=== PATIENT | female | born 1985 | race Caucasian/White ===

== ENCOUNTER → 2021-08-27 | Outpatient (CLI) | payer BC ==
[~2021-08-27] MED LIST: BCPs; IBUP800 PO; OMEP40CA12 PO; PHENA200 PO; POLY500 PO; Robaxin-750750 MG PO; SUCR1 PO; SULTRIDS PO; [UNRECOGNIZED DRUG - REMARK]
[2021-08-27 07:57] LABS: BASOPHILS ABSOLUTE AUTO 0.04 K/mm3 (0.00-0.23); BASOPHILS PERCENT AUTO 0 % (0-2); EOSINOPHILS ABSOLUTE AUTO 0.19 K/mm3 (0.00-0.68); EOSINOPHILS PERCENT AUTO 2 % (0-6); Hematocrit 38.7 % (33.0-51.0); Hemoglobin 12.4 g/dL (11.5-16.0); IMMATURE GRAN ABSOLUTE AUTO 0.12 K/mm3 (0.00-0.10); IMMATURE GRAN PERCENT AUTO 1 % (0-1); LYMPHOCYTES ABSOLUTE AUTO 1.71 K/mm3 (0.84-5.20); LYMPHOCYTES PERCENT AUTO 18 % (21-46); MONOCYTES ABSOLUTE AUTO 0.77 K/mm3 (0.16-1.47); MONOCYTES PERCENT AUTO 8 % (4-13); Mean Corpuscular Volume 81 fL (80-100); NEUTROPHILS ABSOLUTE AUTO 6.69 K/mm3 (1.96-9.15); NEUTROPHILS PERCENT AUTO 70 % (41-73); Platelet Count 316 K/mm3 (150-400); RDW Coefficient Variation 12.8 % (11.7-14.2); RDW Standard Deviation 37.3 fL (35.1-46.3); Red Blood Cell Count 4.77 M/mm3 (3.80-5.20); White Blood Cell Count 9.52 K/mm3 (4.00-11.30)
[2021-08-27 08:49] LABS: Alanine Aminotransfer (ALT/SGP 32 U/L (12-78); Albumin, Blood 3.7 g/dL (3.4-5.0); Albumin/Globulin Ratio 1.2 (0.8-1.8); Alk Phos 55 U/L (40-126); Anion Gap 11 mmol/L (6-16); Aspartate Aminotrans (AST/SGOT 18 U/L (12-37); Bilirubin, Total 0.2 mg/dL (0.1-1.0); Blood Urea Nitrogen 11 mg/dL (8-24); Bun/Creatinine Ratio 12.9 (12.0-20.0); CO2, Blood 24 mmol/L (21-32); Calcium, Blood 8.5 mg/dL (8.5-10.1); Chloride, Blood 105 mmol/L (98-108); Creatinine, Blood 0.85 mg/dL (0.40-1.00); Globulin, Blood 3.2 g/dL (2.2-4.0); Glomerular Filtration Rate >60 (60-); Glucose, Blood 93 mg/dL (70-99); Potassium, Blood 4.1 mmol/L (3.5-5.5); Sodium, Blood 140 mmol/L (136-145); Total Protein, Blood 6.9 g/dL (6.4-8.2)
== END ==
LOC: LAB SHORT 07:50
PROVIDERS: Physician Assistant
DX: R07.89 Other chest pain (principal); R53.83 Other fatigue
CPT/HCPCS: 80053; 84443; 84484; 85025; 85379

== ENCOUNTER 2022-06-07 07:34 | Day surgery (SDC) | payer OTHER ==
[~2022-06-07] VITALS: Ht 167.6 cm; Wt 87.3 kg
[2022-06-07] MEDS ORDERED: SERT50 PO (08:03)
[2022-06-07] MEDS ORDERED: OMEP20ER PO (08:03)
--- NOTE | 2022-06-07 09:01 | NUR ---
06/07/22 0901 JOHN ROWAN 0.05MG OF EPI ADDED TO 10MLS OF BUPIVACAINE 0.5% TO CREATE A LOCAL SOLUTION OF BUPIVACAINE 0.5% WITH EPI 1:200,000. LOCAL POURED ONTO STERILE FIELD. 10MLS OF LOCAL INJECTED BY DR. YUEN INTO R HAND AND ELBOW AT END OF CASE.
--- NOTE | 2022-06-07 11:14 | NUR ---
06/07/22 1114 Magnus Kent PT REPORTED 2/10 PAIN UPON DISCHARGE BUT STATED PAIN WAS TOLERABLE. SHE APPEARED CALM AND RELAXED.
== END 2022-06-07 11:07 | disposition home or self-care (01) ==
LOC: ORSCSDS 07:34
PROVIDERS: Orthopaedic Surgery
PROC: 01S40ZZ Reposition Ulnar Nerve, Open Approach (ICD-10-PCS; principal; 2022-06-07 08:45)
PROC: 01N50ZZ Release Median Nerve, Open Approach (ICD-10-PCS; principal; 2022-06-07 08:45)
DX: G56.01 Carpal tunnel syndrome, right upper limb (principal); G56.21 Lesion of ulnar nerve, right upper limb; K21.9 Gastro-esophageal reflux disease without esophagitis; Z79.899 Other long term (current) drug therapy
CPT/HCPCS: J0171; J0690; J1100; J2250; J2405; J2704; J3010; J7120

== ENCOUNTER → 2022-09-25 | Outpatient (CLI) | payer OTHER ==
[~2022-09-25] MED LIST changes: +OMEP20ER PO; +SERT50 PO
[2022-09-27 18:11] LABS: HPV 16 Positive (Negative); HPV 18 Negative (Negative); HPV OTHER HR TYPES Negative (Negative)
== END | disposition home or self-care (01) ==
LOC: LAB SHORT 15:39 → LAB 15:39
PROVIDERS: Advanced Practice Midwife
DX: Z01.419 Encounter for gynecological examination (general) (routine) without abnormal findings (principal)
CPT/HCPCS: 87624; G0145

== ENCOUNTER → 2022-10-21 | Outpatient (CLI) | payer OTHER | END | disposition home or self-care (01) | LOC: LAB SHORT 07:48 → LAB 07:48 → PLD 07:48 | DX: N84.0 Polyp of corpus uteri (principal) | CPT/HCPCS: 88305 ==

== ENCOUNTER 2022-10-31 11:36 | Day surgery (SDC) | payer OTHER ==
[~2022-10-31] VITALS: Ht 167.6 cm; Wt 85.8 kg
--- NOTE | 2022-10-31 08:06 | NUR ---
PT'S GLASSES GIVEN TO , PATIENTS TOP AND BOTTOM DENTURES PLACED IN CUP AND TAKEN TO PACU.
[~2022-10-31 11:36] MED LIST changes: +MULTI-VITAMIN1 EAC2 PO; +PRENATAL PLUS PO
--- NOTE | 2022-10-31 12:15 | NUR ---
Ambulatory in Day Surgery Surgical site prepped with 2% Chlorhexidine cloth wipe. History, Chart, Medications and Allergies reviewed before start of procedure.Lungs clear T/O to Auscultation. Patient confirms NPO status and agrees with scheduled surgery. Patient reports completing Chlorhexadine shower X2 prior to admission to hospital.
--- NOTE | 2022-10-31 17:49 | NUR ---
10/31/[id number] Jacqueline Clay RADIOLOGY CALL AND REPORTED TO NO RETAINED ITEM, EXCEPT VAGINAL PACKING IN PELVIS OR ABDOMEN.
--- NOTE | 2022-10-31 19:28 | NUR ---
SHIFT SUMMARY PT A&OX4, VSS, POLY PO H20 & JELLO AFTER N&V TREATED WITH REGLAN, HUNTER PATENT & DRAINING, PAIN MANAGED WITH DILAUDID 0.5 MG, FAMILY AT BEDSIDE. REPORT PROVIDED TO WOODROW BEARD.
--- NOTE | 2022-11-01 05:23 | NUR ---
SUMMARY PATIENT POD1 FOR ROBOTIC LAP HYSTER. LAP SITES X4 COVERED WITH GAUZE AND TEGADERM C/D/I. NO ACUTE EVENTS THIS SHIFT HUNTER PATENT AND DRAINING TO GRAVITY, PLAN TO DC HUNTER THIS AM. MEDICATED FOR PAIN AND TOLERATES WELL. PATIENT AMBULATES WELL IN ROOM. DENIES N/V, TOLERATING PO INTAKE. VSS, CALL LIGHT IN REACH. WILL REPORT TO ZAYRA BEARD.
--- NOTE | 2022-11-01 10:30 | NUR ---
DISCHARGE SUMMARY PT A&OX4, VSS/RA, POLY PO, VOIDING WELL AFTER REMOVAL OF CATHETER AND PACKING, PAIN MANAGED, AMB INDEPENDENTLY/DRESSED SELF, 2 IVS DC'D. DC INSTRUCTIONS PROVIDED. PT REP UNDERSTANDING THOSE INSTRUCTIONS INCLUDING FU WITH SURGEON, OK TO REMOVE GAUZE/TEGADERM AND SHOWER TODAY/LEAVING GLUE IN PLACE, NO DRIVING WHILE TAKING NARCOTICS. PT REP HAS MED SCRIPTS FILLED AT HOME. LEFT FLOOR VIA WC WITH GENERAL INTERNIST TO GO HOME WITH SPOUSE, WITH ALL PERSONAL POSSESSIONS INCLUDING DC PACKET.
== END 2022-11-01 10:04 | disposition home or self-care (01) ==
LOC: ORSCMMR 11:36 → ORD 13:45 → ORSCMMR 13:45 → SURS 18:26 → ORSCMMR 11-01 10:04
PROVIDERS: Obstetrics & Gynecology
PROC: 0UT9FZZ Resection of Uterus, Via Natural or Artificial Opening With Percutaneous Endoscopic Assistance (ICD-10-PCS; principal; 2022-10-31 13:45)
PROC: 0UT7FZZ Resection of Bilateral Fallopian Tubes, Via Natural or Artificial Opening With Percutaneous Endoscopic Assistance (ICD-10-PCS; principal; 2022-10-31 13:45)
PROC: 0JQC0ZZ Repair Pelvic Region Subcutaneous Tissue and Fascia, Open Approach (ICD-10-PCS; principal; 2022-10-31 13:45)
PROC: 8E0W4CZ Robotic Assisted Procedure of Trunk Region, Percutaneous Endoscopic Approach (ICD-10-PCS; principal; 2022-10-31 13:45)
DX: N81.2 Incomplete uterovaginal prolapse (principal); N92.0 Excessive and frequent menstruation with regular cycle; D06.9 Carcinoma in situ of cervix, unspecified; R10.2 Pelvic and perineal pain; R87.810 Cervical high risk human papillomavirus (HPV) DNA test positive; N84.0 Polyp of corpus uteri; D25.2 Subserosal leiomyoma of uterus; N83.8 Other noninflammatory disorders of ovary, fallopian tube and broad ligament
CPT/HCPCS: 58571; 57268; S2900; 36415; 74018; 84703; 86850; 86900; 86901; 88307; A9270; J0690; J1100; J1170; J1885; J2250; J2405; J2704; J3010; J7120

== ENCOUNTER 2023-07-23 09:25 | Emergency (ER) | payer OTHER ==
[~2023-07-23] VITALS: Ht 167.6 cm; Wt 77.1 kg
[2023-07-23 11:14] LABS: BASOPHILS ABSOLUTE AUTO 0.03 K/mm3 (0.00-0.23); BASOPHILS PERCENT AUTO 0 % (0-2); EOSINOPHILS ABSOLUTE AUTO 0.17 K/mm3 (0.00-0.68); EOSINOPHILS PERCENT AUTO 2 % (0-6); Hemoglobin 13.9 g/dL (11.5-16.0); IMMATURE GRAN ABSOLUTE AUTO 0.04 K/mm3 (0.00-0.10); IMMATURE GRAN PERCENT AUTO 1 % (0-1); LYMPHOCYTES ABSOLUTE AUTO 1.63 K/mm3 (0.84-5.20); LYMPHOCYTES PERCENT AUTO 20 % (21-46); MONOCYTES ABSOLUTE AUTO 0.61 K/mm3 (0.16-1.47); MONOCYTES PERCENT AUTO 7 % (4-13); Mean Corpuscular HGB 25.8 pg (26.0-34.0); Mean Corpuscular HGB Conc 32.3 g/dL (31.5-36.5); Mean Corpuscular Volume 80 fL (80-100); NEUTROPHILS ABSOLUTE AUTO 5.84 K/mm3 (1.96-9.15); NEUTROPHILS PERCENT AUTO 70 % (41-73); RDW Coefficient Variation 13.2 % (11.7-14.2); RDW Standard Deviation 37.6 fL (35.1-46.3); Red Blood Cell Count 5.38 M/mm3 (3.80-5.20); White Blood Cell Count 8.32 K/mm3 (4.00-11.30)
[2023-07-23 11:20] LABS: Albumin, Blood 3.9 g/dL (3.4-5.0); Albumin/Globulin Ratio 1.1 (0.8-1.8); Bilirubin, Total 0.5 mg/dL (0.1-1.0); Bun/Creatinine Ratio 16.8 (12.0-20.0); Calcium, Blood 8.6 mg/dL (8.5-10.1); Creatinine, Blood 0.77 mg/dL (0.40-1.00); Globulin, Blood 3.6 g/dL (2.2-4.0); Total Protein, Blood 7.5 g/dL (6.4-8.2)
[2023-07-23 11:47] LABS: Magnesium, Blood 2.2 mg/dL (1.6-2.4); Thyroid Stimulating Hormone 1.29 uIU/mL (0.360-4.800)
[2023-07-23 12:02] LABS: Platelet Count 314 K/mm3 (150-400)
[2023-07-23 15:14] LABS: Appearance, CSF Clear (Clear); Color, CSF No Color (No Color); RBC Count, CSF 1140 /mm3 (0-0); WBC Count, CSF 1 /mm3 (0-5)
[2023-07-23 16:44] LABS: Cryptococcus Neoformans/Gattii Not Detected (NOT DETECT); Enterovirus Not Detected (NOT DETECT); Escherichia Coli K1 Not Detected (NOT DETECT); Haemophilus Influenza Not Detected (NOT DETECT); Herpes Simplex Virus 1 Not Detected (NOT DETECT); Herpes Simplex Virus 2 Not Detected (NOT DETECT); Human Herpesvirus 6 Not Detected (NOT DETECT); Human Parechovirus Not Detected (NOT DETECT); Listeria Monocytogenes Not Detected (NOT DETECT); Neisseria Meningitidis Not Detected (NOT DETECT); Streptococcus Agalactiae Not Detected (NOT DETECT); Streptococcus Pneumoniae Not Detected (NOT DETECT); Varicella Zoster Virus Not Detected (NOT DETECT)
[2023-07-23 17:45] VITALS: BP 122/71
[2023-07-23 18:41] LABS: Thyroid Stimulating Hormone 1.07 uIU/mL (0.360-4.800)
[2023-07-25 12:11] LABS: HEMOGLOBIN A1C 5.8 % (4.8-5.6)
[2023-07-27 12:22] LABS: VITAMIN B6 PYRIDOXAL 5-PHOSPH 64.1 nmol/L (20.0-125.0)
== END 2023-07-23 18:21 | disposition home or self-care (01) ==
LOC: ER 09:25
PROVIDERS: Emergency Medicine; Physician Assistant
DX: R20.2 Paresthesia of skin (principal); R29.898 Other symptoms and signs involving the musculoskeletal system; H53.8 Other visual disturbances
CPT/HCPCS: 62270; 70450; 70553; 71046; 72156; 80053; 82607; 82728; 82945; 83036; 83540; 83550; 83690; 83735; 84157; 84207; 84443; 85025; 85651; 87070; 87205; 87483; 89051; 93005; 93010; 99284-25; A9579

== ENCOUNTER 2023-07-29 16:23 | Day surgery (SDC) | payer OTHER ==
[~2023-07-29] VITALS: Ht 167.6 cm; Wt 80.5 kg
[2023-07-29 16:42] VITALS: BP 139/80
[2023-07-29 17:42] VITALS: BP 129/81
--- NOTE | 2023-07-29 17:52 | NUR ---
PT TO [facility] FOR DIRECT ADMIT FOR A BLOOD PATCH PER DR ZAMORANO. PT TO DAY SURG WITH STEADY GAIT. VSS. PT POSITOINED AND TIME OUT DONE WITH DR ZAMORANO. VSS AFTER PROCEDURE. SEE DR ZAMORANO'S NOTES FOR PROCEDURE DETAILS.
[2023-07-29 17:58] VITALS: BP 112/70
[2023-07-29 18:15] VITALS: BP 120/84
== END 2023-07-29 23:46 | disposition home or self-care (01) ==
LOC: ORSCMMR 16:23
PROVIDERS: Student in an Organized Health Care Education/Training Program
PROC: 3E0R3GC Introduction of Other Therapeutic Substance into Spinal Canal, Percutaneous Approach (ICD-10-PCS; principal; 2023-07-29 16:00)
DX: G97.1 Other reaction to spinal and lumbar puncture (principal)
CPT/HCPCS: J7120